=== PATIENT | female | born 1985 | race African-American/Black ===

== ENCOUNTER 2017-07-20 06:24 | Emergency (ER) | payer SELFPAY ==
--- NOTE | 2017-07-20 07:13 | ER Document Report ---
HPI - HPI Patient complains to provider of: Left upper teeth pain Onset: Yesterday Onset/Duration: Gradual Pain Level: 5 Context: 31-year-old female complaining of upper left dental pain she knows she has decayed teeth but afford to see a dentist. No fever or facial swelling. She is allergic to penicillin but she can take cephalexin. She took Motrin and Tylenol without relief. Associated Symptoms: None Exacerbated by: Denies Relieved by: Denies - ROS ROS below otherwise negative: Yes Systems Reviewed and Negative: Yes All other systems reviewed and negative - REPRODUCTIVE Reproductive: DENIES: : Past Medical History - General Information source: Patient - Social History Smoking Status: Current Some Day Smoker Frequency of alcohol use: None Lives with: Family Family History: Hypertension Patient has suicidal ideation: No Patient has homicidal ideation: No Pulmonary Medical History: Reports: Hx Asthma Renal/ Medical History: Denies: Hx Peritoneal Dialysis Surgical Hx: Negative - Immunizations Hx Diphtheria, Pertussis, Tetanus Vaccination: Yes Vertical Provider Document - CONSTITUTIONAL Agree With Documented VS: Yes Exam Limitations: No Limitations General Appearance: No Apparent Distress - INFECTION CONTROL TRAVEL OUTSIDE OF THE [place] IN LAST 30 DAYS: No - HEENT HEENT: Normocephalic Notes: dental decay 2nd bicupid and 1st molar top left, no gingival abscess but inflamed - NECK Neck: Supple. negative: Lymphadenopathy-Left, Lymphadenopathy-Right - RESPIRATORY O2 Sat by Pulse Oximetry: 100 - NEURO Level of Consciousness: Awake, Alert - DERM Integumentary: Warm, Dry Course - Vital Signs Vital signs: Temp Pulse Resp BP Pulse Ox 98.4 F 111 H 22 H 143/90 H 100 07/20/17 06:28 07/20/17 06:28 07/20/17 06:28 07/20/17 06:28 07/20/17 06:28 Discharge - Discharge Clinical Impression: Dental pain and decay Condition: Good Disposition: HOME, SELF-CARE Instructions: Acetaminophen, Cephalexin ([facility]), Dentist, Use of Over-The- Counter Ibuprofen ([facility]), Toothache ([facility]) Additional Instructions: over the counter oragel for topical pain relief over the counter motrin and tylenol for pain see the dentist to er any fever, swelling Prescriptions: Cephalexin Monohydrate [Keflex 500 mg Capsule] 500 mg PO QID #40 capsule
[2017-07-20] MEDS ORDERED: BENZONATATE 100 MG CAPSULE PO ONE (07:28)
[2017-07-20 08:08] VITALS: BP 139/85
== END 2017-07-20 08:05 | disposition home or self-care (01) ==
LOC: ER 06:24
DX: K02.9 Dental caries, unspecified (principal); K05.10 Chronic gingivitis, plaque induced; K08.89 Other specified disorders of teeth and supporting structures; J45.909 Unspecified asthma, uncomplicated; F17.200 Nicotine dependence, unspecified, uncomplicated; Z88.0 Allergy status to penicillin
CPT/HCPCS: 99282

== ENCOUNTER 2017-12-25 23:29 | Emergency (ER) | payer SELFPAY ==
[2017-12-25 23:42] VITALS: BP 152/94
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
== END 2017-12-26 03:27 | disposition home or self-care (01) ==
LOC: ER 23:29
DX: F41.9 Anxiety disorder, unspecified (principal); J45.909 Unspecified asthma, uncomplicated; Z88.0 Allergy status to penicillin; Z53.20 Procedure and treatment not carried out because of patient's decision for unspecified reasons
CPT/HCPCS: 99281; 99283

== ENCOUNTER 2018-07-29 10:02 | Emergency (ER) | payer SELFPAY ==
--- NOTE | 2018-07-29 10:33 | ER Document Report ---
ED Medical Screen (RME) - General Chief Complaint: Cough Stated Complaint: COUGH/CHEST ACHE Time Seen by Provider: 07/29/18 10:26 Notes: Patient says that she has had a bad cough for couple of weeks. She is also developed some substernal chest pains at feels like a stabbing pain in the mid substernal region going through into her back. Also has some discomfort in the epigastrium. The symptoms have been going on off and on since March but became daily in the past week. Has a history of asthma. Has not had any fever. I noted the patient's pulse rate in triage and its 121. Remainder vital signs are normal. Patient is holding a very large cup of coffee which I am told is 16 ounces. She actually has had 2 of those large 16 ounce coffees this morning and now has a Sprite that she is drinking. Denies any leg pain or swelling. LMP July 15, regular, on no control. Has no medical conditions for which he takes medications. Patient is a cigarette smoker of 1/4-1/3 of a pack a day. She says that she is been coughing up some black specks and may be even a couple of flecks of blood. TRAVEL OUTSIDE OF THE [place] IN LAST 30 DAYS: No - Related Data Allergies/Adverse Reactions: Penicillins Allergy (Severe, Verified 07/29/18 10:06) thoat swelling Past Medical History - Social History Cigarette use (# per day): Yes - 1/4 to 1/3 pack a day Family history: Reviewed & Not Pertinent Pulmonary Medical History: Reports: Hx Asthma - Immunizations Hx Diphtheria, Pertussis, Tetanus Vaccination: Yes Review of Systems - Review of Systems Notes: REVIEW OF SYSTEMS: CONSTITUTIONAL : Denies fever. EENT: Denies eye, ear, nose or mouth or throat pain or other symptoms. CARDIOVASCULAR: See HPI. Sharp, stabbing pain from the mid substernal into the back intermittently for several months. RESPIRATORY: Has cough, chest congestion, but not shortness of breath. GASTROINTESTINAL: Denies abdominal pain or nausea, vomiting, or diarrhea. Some pain in the upper mid epigastrium. GENITOURINARY: Denies difficulty or painful urinating, urinary frequency, blood in urine. MUSCULOSKELETAL: Denies back or neck pain. Denies joint pain or swelling. Denies any leg pain or swelling. Never had any blood clots. SKIN: Denies rash or skin lesions. NEUROLOGICAL: Denies LOC or altered mental status. Denies headache. Denies sensory loss or motor deficits. ALL OTHER SYSTEMS REVIEWED AND NEGATIVE. Physical Exam - Vital signs Vitals: Temp Pulse Resp BP Pulse Ox 98.6 F 121 H 16 145/92 H 97 07/29/18 10:08 07/29/18 10:08 07/29/18 10:08 07/29/18 10:08 07/29/18 10:08 Interpretation: Tachycardic - Patient has had 2 large 16 ounce cups of regular coffee as well as some Sprite this morning. Also smokes. Notes: PHYSICAL EXAMINATION: GENERAL: Well-appearing, in no acute distress. Heart rate at bedside by me is 108. No respiratory difficulty or distress. Coughing frequently. HEAD: Atraumatic, normocephalic. EYES: Pupils equal round and reactive to light, extraocular movements intact. ENT: oropharynx has large tonsils but only slightly erythematous and without exudates. Moist mucous membranes. NECK: Normal range of motion, supple. LUNGS: Breath sounds clear and equal bilaterally. Very few scattered wheezes and rhonchi. Airflow sounds good. HEART: Regular rate and rhythm without murmurs. ABDOMEN: Soft, nontender. No guarding or rebound. No masses. BACK: No tenderness throughout entire back. EXTREMITIES: Normal range of motion without pain. NEUROLOGICAL: Normal speech, normal gait. Normal sensory, motor, and reflex exams. Awake, alert, and oriented x3. Cranial nerves normal. PSYCH: Normal mood, normal affect. SKIN: Warm, dry, no rashes. Course - Vital Signs Vital signs: Temp Pulse Resp BP Pulse Ox 98.6 F 121 H 16 145/92 H 97 07/29/18 10:08 07/29/18 10:08 07/29/18 10:08 07/29/18 10:08 07/29/18 10:08 - Laboratory Result Diagrams: 07/29/18 10:50 07/29/18 10:50 Laboratory results interpreted by me: 07/29/18 07/29/18 10:50 10:50 WBC 16.9 H Hgb 11.8 L Hct 35.4 L RDW 15.0 H Absolute Neutrophils 11.7 H AST 50 H ALT 62 H Doctor's Discharge - Discharge Clinical Impression: Bronchitis Condition: Stable Disposition: HOME, SELF-CARE Additional Instructions: UPPER RESPIRATORY ILLNESS: You have a viral infection of the respiratory passages -- a "cold." This common infection causes nasal congestion, drainage, and often sore throat and cough. It is highly contagious. The disease usually lasts about 10 to 14 days. There is no "cure" for the viral infection -- it must run its course. If there is a complication, such as bacterial infection in the nose, sinuses, middle ear, or bronchial tubes, antibiotics may be required. The antibiotics won't affect the virus. Drink plenty of fluids. A humidifier may help. An expectorant medication or decongestant may make you more comfortable. Use acetaminophen or ibuprofen for fever or aches. See the doctor if fever persists over two days, if there is any significant worsening of your symptoms, or if you simply fail to improve as expected. Bronchitis You have acute bronchitis. This disease is an infection or inflammation of the air passageways in your lungs. Symptoms usually include cough, low grade fe akshat, shortness of breath, and wheezing. The cough usually persists for a couple of weeks. Most cases of bronchitis get better without antibiotics. We prescribe antibiotics when we believe bacteria are damaging your airways, or if there's high risk the bronchitis will worsen into pneumonia. Increase your fluid intake. A cool mist humidifier may make your lungs more comfortable. An expectorant (cough medicine that loosens phlegm) can help. If you smoke, STOP!!! Recovery from bronchitis can be somewhat slow, but you should see improvement within a day or two. Repeated episodes of bronchitis may result in lung damage -- for example, chronic bronchitis, recurrent pneumonias, or emphysema. Call the doctor if you develop increasing fever, shortness of breath, chest pain, bloody sputum, or otherwise worsen. If you have not improved at all after several days, contact the physician. COUGH-SUPPRESSANT & EXPECTORANT MEDICATION: You are to use a cough medication as needed for relief of symptoms. This medicine is a combination of an expectorant (to make the mucous thinner and more easily "coughed up") and a cough suppressant (to reduce the frequency of coughing). The cough-suppressant medicine is related to narcotics. You may experience mild nausea and sleepiness. Some patients who are very sensitive to narcotics may have stomach pain from this medicine. Taking the medicine with food reduces these side effects. Do not drive or work with machinery until you know how this medicine affects you. The expectorant should have no side effects. Iodine-containing expectorants (such as organidin) should not be taken by persons with active thyroid disease unless approved by your doctor. Call the doctor if you develop shortness of breath, hives, rash, itching, lightheadedness, or severe nausea and vomiting. USE OF ACETAMINOPHEN (Tylenol): Acetaminophen may be taken for pain relief or fever control. It's much safer than aspirin, offering a wider range of "safe" dosages. It is safe during . Some brand names are Tylenol, Panadol, Datril, Anacin 3, Tempra, and Liquiprin. Acetaminophen can be repeated every four hours. The following are maximum recommended dosages: >89 pounds or adults 650 mg to 900 mg Acetaminophen can be repeated every four hours. Maximum dose not to exceed 4000 mg a day. SMOKING: If you smoke, you should stop smoking. The tar and chemicals in cigarette smoke are harmful. Smoking has been shown to cause: emphysema chronic bronchitis lung cancer mouth and throat cancer stomach and pancreas cancer premature aging defects In addition, smoking increases ear and lung infections in children of smokers. FOLLOW-UP CARE: If you have been referred to a physician for follow-up care, call the physicians office for an appointment as you were instructed or within the next two days. If you experience worsening or a significant change in your symptoms, notify the physician immediately or return to the Emergency Department at any time for re-evaluation. It is very important that you stop smoking cigarettes. Prescriptions: Hydrocodone/Acetaminophen [Mcclellan 5-325 mg Tablet] 1 tab PO Q4HP PRN #15 tablet PRN Reason: Azithromycin [Zithromax 250 mg Tablet] 250 mg PO ASDIR PRN #6 tablet PRN Reason:
[2018-07-29 11:04] LABS: ABSOLUTE BASOPHILS # (AUTO) 0.1 10^3/uL (0.0-0.2); ABSOLUTE EOSINOPHILS # (AUTO) 0.5 10^3/uL (0.0-0.6); ABSOLUTE LYMPHOCYTES (AUTO) 3.3 10^3/uL (0.5-4.7); ABSOLUTE MONOCYTES (AUTO) 1.3 10^3/uL (0.1-1.4); ABSOLUTE NEUT (AUTO) 11.7 10^3/uL (1.7-8.2); BASOPHILS % (AUTO) 0.7 % (0-2); EOSINOPHILS % (AUTO) 2.8 % (0-6); HEMATOCRIT 35.4 % (36.0-47.0); HEMOGLOBIN 11.8 g/dL (12.0-15.5); LYMPHOCYTES % (AUTO) 19.3 % (13-45); MEAN CORPUSCULAR HEMOGLOBIN 28.6 pg (27.0-33.4); MEAN CORPUSCULAR HGB CONC 33.4 g/dL (32.0-36.0); MEAN CORPUSCULAR VOLUME 86 fl (80-97); MONOCYTES % (AUTO) 7.6 % (3-13); PLATELET COUNT 302 10^3/uL (150-450); RED BLOOD COUNT 4.12 10^6/uL (3.72-5.28); SEGMENTED NEUTROPHILS % (AUTO) 69.6 % (42-78); TOTAL CELLS COUNTED % (AUTO) 100 %; WHITE BLOOD COUNT 16.9 10^3/uL (4.0-10.5)
--- NOTE | 2018-07-29 11:12 | RADIOLOGY REPORT (SQ) ---
EXAM DESCRIPTION: CHEST 2 VIEWS COMPLETED DATE/TIME: 07/29/2018 11:05 am REASON FOR STUDY: Substernal chest pain COMPARISON: None. TECHNIQUE: Frontal and lateral radiographic views of the chest acquired. NUMBER OF VIEWS: Two view. LIMITATIONS: None. FINDINGS: LUNGS AND PLEURA: No opacities, masses or pneumothorax. No pleural effusion. MEDIASTINUM AND HILAR STRUCTURES: No masses or contour abnormalities. HEART AND VASCULAR STRUCTURES: Heart normal size. No evidence for failure. BONES: No acute findings. HARDWARE: None in the chest. OTHER: No other significant finding. IMPRESSION: NO SIGNIFICANT RADIOGRAPHIC FINDING IN THE CHEST. TECHNICAL DOCUMENTATION: JOB ID: [id number] [employer]- All Rights Reserved Reading location - IP/workstation name: [email or web address]
[2018-07-29 11:22] LABS: ALANINE AMINOTRANSFERASE 62 U/L (9-52); ALBUMIN 4.4 g/dL (3.5-5.0); ALKALINE PHOSPHATASE 118 U/L (38-126); ANION GAP 14 (5-19); ASPARTATE AMINO TRANSFERASE 50 U/L (14-36); BILIRUBIN,DIRECT 0.2 mg/dL (0.0-0.4); BILIRUBIN,TOTAL 0.6 mg/dL (0.2-1.3); BLOOD UREA NITROGEN 17 mg/dL (7-20); CALCIUM 9.6 mg/dL (8.4-10.2); CARBON DIOXIDE 25 mmol/L (22-30); CHLORIDE 103 mmol/L (98-107); GLUCOSE 107 mg/dL (75-110); LIPASE 29.2 U/L (23-300); POTASSIUM 3.9 mmol/L (3.6-5.0); SODIUM 141.7 mmol/L (137-145); TOTAL PROTEIN 7.9 g/dL (6.3-8.2)
[2018-07-29 12:11] VITALS: BP 153/97
[2018-07-29 12:14] LABS: FREE T4 (FREE THYROXINE) 1.14 ng/dL (0.78-2.19)
[2018-07-29 12:28] LABS: THYROID STIMULATING HORMONE 7.09 uIU/mL (0.47-4.68)
== END 2018-07-29 12:11 | disposition home or self-care (01) ==
LOC: ER 10:02
DX: J40 Bronchitis, not specified as acute or chronic (principal); R07.9 Chest pain, unspecified; F17.210 Nicotine dependence, cigarettes, uncomplicated; Z88.0 Allergy status to penicillin
CPT/HCPCS: 36415; 71046; 80053; 83690; 84439; 84443; 84484; 84703; 85025; 99284

== ENCOUNTER 2019-12-27 10:17 | Outpatient (CLI) | payer MEDICAID ==
--- NOTE | 2019-12-27 12:48 | RADIOLOGY REPORT (SQ) ---
EXAM DESCRIPTION: U/S PROFILE W/O STRESS IMAGES COMPLETED DATE/TIME: 12/27/2019 12:00 pm REASON FOR STUDY: non reactive NST @36wga COMPARISON: None. TECHNIQUE: Limited phelan-scale realtime and static images of the fetus to measure specified parameter s. LIMITATIONS: None. FINDINGS: HEART RATE: 136 beats per minute. CINDY: 17.3 cm. LVP: 9.8 x 5.4 cm. BREATHING MOVEMENT: 2 points. MOVEMENT: 2 points. POSTURE AND TONE: 2 points. QUALITATIVE CINDY: 2 points. OTHER: No other finding. IMPRESSION: BIOPHYSICAL PROFILE: 03/09. Trimester of : Third - 28 weeks to delivery COMMENT: BREATHING MOVEMENTS: 2 POINTS: PRESENT 0 POINTS: ABSENT MOTION: 2 POINTS: PRESENT 0 POINTS: ABSENT TONE: 2 POINTS: PRESENT 0 POINTS: ABSENT AMNIOTIC FLUID VOLUME: 2 POINTS: LARGEST POCKET GREATER THAN 2 CM DEPTH. 0 POINTS: NO POCKET OF 2 CM. TECHNICAL DOCUMENTATION: JOB ID: [id number] [employer]- All Rights Reserved Reading location - IP/workstation name: [email or web address]
== END 2019-12-27 12:37 | disposition home or self-care (01) ==
LOC: LC 10:17
PROVIDERS: ATTEND Obstetrics & Gynecology Gynecology
DX: O10.913 Unspecified pre-existing hypertension complicating pregnancy, third trimester (principal); Z3A.36 36 weeks gestation of pregnancy; Z88.0 Allergy status to penicillin; Z87.891 Personal history of nicotine dependence
CPT/HCPCS: 59025; 76819

== ENCOUNTER 2020-01-15 15:57 | Outpatient (CLI) | payer MEDICAID ==
[2020-01-15 17:41] LABS: ABSOLUTE BASOPHILS # (AUTO) 0.1 10^3/uL (0.0-0.2); ABSOLUTE EOSINOPHILS # (AUTO) 0.1 10^3/uL (0.0-0.6); ABSOLUTE LYMPHOCYTES (AUTO) 2.6 10^3/uL (0.5-4.7); ABSOLUTE MONOCYTES (AUTO) 0.8 10^3/uL (0.1-1.4); ABSOLUTE NEUT (AUTO) 7.8 10^3/uL (1.7-8.2); BASOPHILS % (AUTO) 0.8 % (0-2); EOSINOPHILS % (AUTO) 0.7 % (0-6); HEMATOCRIT 38.1 % (36.0-47.0); HEMOGLOBIN 12.6 g/dL (12.0-15.5); LYMPHOCYTES % (AUTO) 22.9 % (13-45); MEAN CORPUSCULAR VOLUME 88 fl (80-97); MONOCYTES % (AUTO) 6.7 % (3-13); PLATELET COUNT 233 10^3/uL (150-450); RED BLOOD COUNT 4.33 10^6/uL (3.72-5.28); RED CELL DISTRIBUTION WIDTH 13.5 % (11.5-14.0); SEGMENTED NEUTROPHILS % (AUTO) 68.9 % (42-78); TOTAL CELLS COUNTED % (AUTO) 100 %; WHITE BLOOD COUNT 11.4 10^3/uL (4.0-10.5)
[2020-01-15 17:58] LABS: ALBUMIN 3.6 g/dL (3.5-5.0); ALKALINE PHOSPHATASE 156 U/L (38-126); ANION GAP 10 (5-19); ASPARTATE AMINO TRANSFERASE 33 U/L (14-36); BILIRUBIN,TOTAL 0.5 mg/dL (0.2-1.3); BLOOD UREA NITROGEN 10 mg/dL (7-20); CALCIUM 9.3 mg/dL (8.4-10.2); CARBON DIOXIDE 20 mmol/L (22-30); CHLORIDE 107 mmol/L (98-107); GLUCOSE 82 mg/dL (75-110); POTASSIUM 3.7 mmol/L (3.6-5.0); TOTAL PROTEIN 7.2 g/dL (6.3-8.2); URIC ACID 4.6 mg/dL (2.5-6.2)
--- NOTE | 2020-01-15 19:14 | Non Stress Test Report ---
Non Stress Test Datetime Report Generated by CPN: 01/15/2020 19:14 DEMOGRAPHIC EGA NST: 38.5 EGA NST: 36.0 VITAL SIGNS Temperature - NST: 98.0 MONITORING Monitor Explained: Monitor Explained; Test Explained; Patient Verbalized Understanding Monitor Explained: Monitor Explained; Test Explained; Patient Verbalized Understanding Time on Monitor: 01/15/2020 16:25 Time on Monitor: 12/27/2019 10:26 Time off Monitor: 01/15/2020 17:23 NST Duration: 58 NST INTERVENTIONS NST Interventions: PO Hydration; Reposition Patient Physician Notified NST: Dr. Burgos Physician Notified NST: Jono Nelson CNJuwan on unit, reviewed fht BABY A: [id number] BABY A Movement : Present Contraction Frequency : irregular Contraction Frequency : none FHR Baseline : 125 Accelerations : 15X15 Decelerations : None Variability : Moderate 6-25bpm NST Review: Meets Criteria for Reactive NST NST Review and Verified By : J.Field, RN NST Results: Reactive NST REPORT Report Trigger: Send Report
[2020-01-15 19:31] LABS: APPEARANCE,URINE CLEAR; BILIRUBIN,URINE NEGATIVE (NEGATIVE); COLOR,URINE STRAW; GLUCOSE, URINE NEGATIVE (NEGATIVE); KETONES,URINE NEGATIVE (NEGATIVE); LEUKOCYTE ESTERASE,URINE TRACE (NEGATIVE); NITRITE,URINE NEGATIVE (NEGATIVE); PROTEIN,URINE NEGATIVE (NEGATIVE); URINE SPECIFIC GRAVITY 1.009; UROBILINOGEN,URINE NEGATIVE mg/dL (<2.0)
[2020-01-15 19:45] LABS: URINE AMPHETAMINES SCREEN NEGATIVE; URINE BARBITURATES SCREEN NEGATIVE; URINE BENZODIAZEPINES SCREEN NEGATIVE; URINE COCAINE SCREEN NEGATIVE; URINE MARIJUANA (THC) SCREEN NEGATIVE; URINE METHADONE SCREEN NEGATIVE; URINE PHENCYCLIDINE SCREEN NEGATIVE
[2020-01-15 19:50] LABS: UR PRO/CREAT RATIO RESULT 0.3 mg/mg (0.0-0.2); URINE CREATININE 52.5 mg/dL (16-327); URINE PROTEIN 14.2 mg/dL (<12)
== END 2020-01-15 19:41 | disposition home or self-care (01) ==
LOC: LC 15:57
PROVIDERS: ATTEND Obstetrics & Gynecology
DX: O16.3 Unspecified maternal hypertension, third trimester (principal); Z3A.38 38 weeks gestation of pregnancy; Z88.0 Allergy status to penicillin; Z87.891 Personal history of nicotine dependence
CPT/HCPCS: 36415; 80053; 80307; 81001; 82570; 83615; 84156; 84550; 85025

== ENCOUNTER 2020-01-17 19:11 | Inpatient (IN) | payer MEDICAID ==
[2020-01-17] MEDS ORDERED: RINGERS SOLUTION,LACTATED 1,000 ML IV ONE (19:15)
[2020-01-17] MEDS ORDERED: ACETAMINOPHEN 325 MG TABLET PO PRN (19:17)
[2020-01-17] MEDS ORDERED: ZOLPIDEM TARTRATE 5 MG TABLET PO PRN (19:17)
[2020-01-17] MEDS ORDERED: DINOPROSTONE 10 MG VAGINAL INSERT.SR PV ONE (19:17)
[2020-01-17] MEDS ORDERED: MAG HYDROX/AL HYDROX/SIMETH SUSP 30 ML UDCUP PO PRN (19:17)
[2020-01-17 20:08] LABS: ABSOLUTE EOSINOPHILS # (AUTO) 0.1 10^3/uL (0.0-0.6); ABSOLUTE LYMPHOCYTES (AUTO) 2.5 10^3/uL (0.5-4.7); ABSOLUTE MONOCYTES (AUTO) 0.7 10^3/uL (0.1-1.4); ABSOLUTE NEUT (AUTO) 7.6 10^3/uL (1.7-8.2); BASOPHILS % (AUTO) 0.4 % (0-2); EOSINOPHILS % (AUTO) 0.8 % (0-6); HEMATOCRIT 35.8 % (36.0-47.0); HEMOGLOBIN 12.4 g/dL (12.0-15.5); LYMPHOCYTES % (AUTO) 22.5 % (13-45); MEAN CORPUSCULAR HEMOGLOBIN 29.9 pg (27.0-33.4); MEAN CORPUSCULAR HGB CONC 34.7 g/dL (32.0-36.0); MEAN CORPUSCULAR VOLUME 86 fl (80-97); MONOCYTES % (AUTO) 6.7 % (3-13); PLATELET COUNT 242 10^3/uL (150-450); RED BLOOD COUNT 4.16 10^6/uL (3.72-5.28); RED CELL DISTRIBUTION WIDTH 13.8 % (11.5-14.0); SEGMENTED NEUTROPHILS % (AUTO) 69.6 % (42-78); TOTAL CELLS COUNTED % (AUTO) 100 %
[2020-01-17 20:21] LABS: APPEARANCE,URINE SLIGHTLY-CLOUDY; BILIRUBIN,URINE NEGATIVE (NEGATIVE); COLOR,URINE YELLOW; GLUCOSE, URINE NEGATIVE (NEGATIVE); KETONES,URINE NEGATIVE (NEGATIVE); LEUKOCYTE ESTERASE,URINE SMALL (NEGATIVE); NITRITE,URINE NEGATIVE (NEGATIVE); PROTEIN,URINE NEGATIVE (NEGATIVE); URINE SPECIFIC GRAVITY 1.012; UROBILINOGEN,URINE NEGATIVE mg/dL (<2.0)
[2020-01-17] MEDS: RINGERS SOLUTION,LACTATED 1,000 ML IV PRN (20:30)
[2020-01-17 20:37] LABS: URINE AMPHETAMINES SCREEN NEGATIVE; URINE BARBITURATES SCREEN NEGATIVE; URINE BENZODIAZEPINES SCREEN NEGATIVE; URINE COCAINE SCREEN NEGATIVE; URINE MARIJUANA (THC) SCREEN NEGATIVE; URINE METHADONE SCREEN NEGATIVE; URINE PHENCYCLIDINE SCREEN NEGATIVE
[2020-01-17] MEDS ORDERED: DINOPROSTONE 10 MG VAGINAL INSERT.SR ONE (20:46)
[2020-01-18] MEDS: RINGERS SOLUTION,LACTATED 1,000 ML IV PRN (04:30)
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
[2020-01-18] MEDS ORDERED: OXYTOCIN/0.9 % SODIUM CHLORIDE 30 UNIT/500 ML RTUINJ IV PRN (10:22)
[2020-01-18] MEDS ORDERED: OXYTOCIN/0.9 % SODIUM CHLORIDE 0 UNIT/0 ML RTUINJ ONE (10:29)
[2020-01-18] MEDS ORDERED: NALBUPHINE HCL INJ 10 MG/1 ML AMPULE ONE (15:29)
[2020-01-18] MEDS ORDERED: PROMETHAZINE HCL INJ 25 MG/1 ML VIAL ONE (15:29)
[2020-01-18] MEDS ORDERED: NIFEDIPINE 10 MG CAPSULE ONE (15:58)
[2020-01-18] MEDS ORDERED: PROMETHAZINE HCL INJ 25 MG/1 ML VIAL IV ONE (16:00)
[2020-01-18] MEDS ORDERED: NALBUPHINE HCL INJ 10 MG/1 ML AMPULE INJ ONE (16:00)
[2020-01-18] MEDS ORDERED: NIFEDIPINE 10 MG CAPSULE PO ONE (16:15)
[2020-01-18] MEDS ORDERED: EPHEDRINE SULFATE INJ 50 MG/1 ML AMPULE ONE (17:19)
[2020-01-18] MEDS ORDERED: BUPIVACAINE HCL 0.25 % INJ/PF (2.5 MG/1 ML) 30 ML VIAL ONE (17:20)
[2020-01-18] MEDS ORDERED: FENTANYL/BUPIVACAINE/NS/PF 300 MCG/150 ML RTUINJ EPI ONE (17:20)
[2020-01-18] MEDS ORDERED: LIDOCAINE 1% INJ-PF (10 MG/ML) 30 ML SDV ONE (19:28)
[2020-01-18] MEDS ORDERED: MISOPROSTOL 0.2 MG TABLET ONE (19:28)
[2020-01-18] MEDS ORDERED: OXYTOCIN 10 UNIT/ML VIAL ONE (19:28)
[2020-01-18] MEDS ORDERED: OXYTOCIN/0.9 % SODIUM CHLORIDE 30 UNIT/500 ML RTUINJ ONE (19:29)
[2020-01-19] MEDS ORDERED: OXYTOCIN/0.9 % SODIUM CHLORIDE 30 UNIT/500 ML RTUINJ ONE (07:33)
[2020-01-19] MEDS ORDERED: FENTANYL/BUPIVACAINE/NS/PF 300 MCG/150 ML RTUINJ EPI ONE (08:53)
[2020-01-19] MEDS ORDERED: BUPIVACAINE HCL 0.25 % INJ/PF (2.5 MG/1 ML) 30 ML VIAL ONE (10:22)
[2020-01-19] MEDS ORDERED: MEASLES,MUMPS&RUBELLA VACC/PF 0.5 ML VIAL SUBCUT PRN (10:38)
[2020-01-19] MEDS ORDERED: PSEUDOEPHEDRINE HCL 30 MG TABLET PO PRN (10:38)
[2020-01-19] MEDS ORDERED: ACETAMINOPHEN 325 MG TABLET PO PRN (10:38)
[2020-01-19] MEDS ORDERED: MAGNESIUM HYDROXIDE SUSP 30 ML UDCUP PO PRN (10:38)
[2020-01-19] MEDS ORDERED: BENZOCAINE/MENTHOL AEROSOL SPRAY 56 ML TOP PRN (10:38)
[2020-01-19] MEDS ORDERED: PROMETHAZINE HCL 25 MG TABLET PO PRN (10:38)
[2020-01-19] MEDS ORDERED: PROMETHAZINE HCL 25 MG SUPP.RECT PR PRN (10:38)
[2020-01-19] MEDS ORDERED: DIBUCAINE 1% OINTMENT 28 GM TP PRN (10:38)
[2020-01-19] MEDS ORDERED: PROMETHAZINE HCL INJ 25 MG/1 ML VIAL IV PRN ×2 (10:38→13:59)
[2020-01-19] MEDS ORDERED: DIPHENHYDRAMINE HCL 25 MG CAPSULE PO PRN (10:38)
[2020-01-19] MEDS ORDERED: DIPH/PERTUSS(ACELL)/TETANUS VAC/PF 0.5 ML SYR (>=10YO) IM PRN (10:38)
[2020-01-19] MEDS ORDERED: OXYTOCIN/0.9 % SODIUM CHLORIDE 30 UNIT/500 ML RTUINJ IV PRN (10:38)
[2020-01-19] MEDS ORDERED: ZOLPIDEM TARTRATE 5 MG TABLET PO PRN (10:38)
[2020-01-19] MEDS ORDERED: GLYCERIN/WITCH HAZEL LEAF 1 EACH MED..WIPE TP PRN (10:38)
[2020-01-19] MEDS ORDERED: NA PHOS,M-B/NA PHOS,DI-BA (ADULT) 133 ML ENEMA PR PRN (10:38)
[2020-01-19] MEDS ORDERED: CARBOPROST TROMETHAMINE INJ 250 MCG/1 ML AMPULE ONE (10:56)
[2020-01-19] MEDS ORDERED: HYDROMORPHONE HCL INJ/PF 2 MG/ML AMPULE ONE (11:28)
[2020-01-19] MEDS ORDERED: HYDROMORPHONE HCL INJ/PF 2 MG/ML AMPULE IV ONE ×2 (11:30→21:42)
--- NOTE | 2020-01-19 12:16 | PDOC CONSULTATION ---
Consultation Consult Date: 01/19/20 Provider Consulted: SURGICAL SURGICALIST Consult reason:: rectal trauma. Full thickness rectal tear History of Present Illness Admission Date/PCP: 01/17/20 19:11 BENNETT SHAW MD History of Present Illness: LATASHA MCCALL is a 34 year old female seen in consultation at the request of the TRUCK RENTAL MANAGER service. This is a patient who was undergoing vaginal delivery, and had a severe posterior vaginal tear, involving the wall of the rectum (full- thickness). On examination, I estimate that the rectal tear approximately 6 to 8 cm, and oriented longitudinally. No retractors were available for examination in the labor and delivery suite, so estimations were based on palpation. The patient complains of rectal and perineal pain. Her pain is sharp and stabbing. She reports that it is 8 out of 10. There is slow, ongoing bleeding. She is positive for hepatitis C, and has a history of hypertension and substance abuse. The patient denies chest pain, shortness of breath, abdominal pain. Past Medical History Cardiac Medical History: Reports: Hypertension Pulmonary Medical History: Reports: Asthma Infectious Medical History: Reports: Hepatitis C Past Surgical History Past Surgical History: Reports: Other - Recent vaginal delivery Social History Smoking Status: Former Smoker Frequency of Alcohol Use: Occasional Hx Recreational Drug Use: Yes Drugs: Other - Methamphetamine, opioids. Hx Prescription Drug Abuse: Yes Past Social History Note: Currently on Suboxone therapy for substance abuse. Family History Family History: Hypertension Parental Family History Reviewed: Yes Children Family History Reviewed: Yes Sibling(s) Family History Reviewed.: Yes Medication/Allergy Home Medications: Buprenorphine HCl/Naloxone HCl [Suboxone 8 mg-2 mg Sl Film] 8 mg SL DAILY 12/27/19 Labetalol HCl [Normodyne 200 mg Tablet] 200 mg PO BID 12/27/19 Pantoprazole Sodium [Protonix [address] Tablet] 40 mg PO DAILY 12/27/19 No122/Iron/Folic Acid [ Multi Tablet] 1 tab PO DAILY 12/27/19 Allergies/Adverse Reactions: Penicillins Allergy (Severe, Verified 01/17/20 19:28) thoat swelling Review of Systems Constitutional: ABSENT: anorexia, chills, fatigue Eyes: ABSENT: visual disturbances Ears: ABSENT: hearing changes Nose, Mouth, and Throat: ABSENT: mouth pain, sore throat Cardiovascular: ABSENT: chest pain Respiratory: ABSENT: cough Gastrointestinal: PRESENT: hematochezia. ABSENT: abdominal pain Genitourinary: ABSENT: dysuria Musculoskeletal: ABSENT: back pain Integumentary: PRESENT: wounds - Large perineal wound Neurological: ABSENT: confusion, convulsions, dizziness Psychiatric: PRESENT: other - History of substance abuse Endocrine: ABSENT: cold intolerance, heat intolerance Hematologic/Lymphatic: ABSENT: easy bleeding, easy bruising Physical Exam Vital Signs: Intake & Output 01/18/20 01/19/20 01/20/20 06:59 06:59 06:59 Intake Total 1000 Balance 1000 Weight 89.7 kg General appearance: PRESENT: no acute distress, cooperative Head exam: PRESENT: atraumatic, normocephalic Eye exam: PRESENT: EOMI, PERRLA. ABSENT: scleral icterus Mouth exam: PRESENT: moist, neck supple Neck exam: ABSENT: meningismus, tenderness, thyromegaly, tracheal deviation Respiratory exam: PRESENT: unlabored. ABSENT: chest wall tenderness, tachypnea, wheezes Cardiovascular exam: ABSENT: tachycardia Vascular exam: PRESENT: normal capillary refill. ABSENT: pallor GI/Abdominal exam: PRESENT: soft. ABSENT: distended, firm, guarding, tenderness Rectal exam: PRESENT: other - Bleeding present. The external sphincter complex appears intact. Large anterior rectal laceration extending approximately 6 to 8 cm, longitudinally. Full-thickness. Extremities exam: ABSENT: clubbing Musculoskeletal exam: ABSENT: deformity Neurological exam: PRESENT: alert, awake, oriented to person, oriented to place, oriented to time, oriented to situation, CN II-XII grossly intact Psychiatric exam: PRESENT: anxious. ABSENT: agitated, depressed Focused psych exam: ABSENT: delusional Skin exam: ABSENT: cyanosis, erythema, jaundice Results Laboratory Results: 01/17/20 19:55 Assessment & Plan - Diagnosis (1) Traumatic injury of rectum Is this a current diagnosis for this admission?: Yes - Plan Summary Plan Summary: This is a 34-year-old female with a full-thickness tear of the rectum. It occurred during her vaginal delivery. On digital inspection, it appears that the sphincter complex is intact. Unfortunately, no retractors are available for a detailed examination. I have recommended operative exploration with repair of the large laceration. The patient is at high risk for fistulization and/or incontinence. There is also the possibility (although unlikely) that the tear could extend into the intra-abdominal cavity, which would put her at risk for intra-abdominal sepsis. Plan for primary repair in 2 layers. If there is failure of the repair or overall failure to improve, the patient may require colostomy placement to assist in healing. This has been discussed with the patient at length. Risks/benefits discussed, informed consent obtained, and all questions answered.
[2020-01-19] MEDS ORDERED: BUPIVACAINE HCL 0.5%-EPI 1:200000 INJ/PF 30 ML VIAL ONE (12:20)
[2020-01-19] MEDS ORDERED: BACITRACIN ZINC OINTMENT 15 GM ONE (13:11)
[2020-01-19] MEDS ORDERED: LIDOCAINE 2% JELLY 30 ML TUBE ONE (13:12)
[2020-01-19] MEDS ORDERED: BUPIVACAINE INJ/PF LIPOSOME/PF 266 MG/20 ML SDV ONE (13:12)
[2020-01-19] MEDS ORDERED: CEFAZOLIN INJ 1 GM VIAL ONE (13:20)
[2020-01-19] MEDS ORDERED: FENTANYL CITRATE INJ/PF 100 MCG/2 ML AMPUL ONE (13:21)
[2020-01-19] MEDS ORDERED: METRONIDAZOLE 500 MG/NS RTU 500 MG/100 ML RTUPB IV ONE (13:21)
[2020-01-19] MEDS ORDERED: MIDAZOLAM 2 MG/2 ML INJ ONE (13:21)
[2020-01-19] MEDS ORDERED: PROPOFOL INJ 200 MG/20 ML VIAL IV ONE ×2 (13:22→15:02)
[2020-01-19] MEDS ORDERED: DIPHENHYDRAMINE HCL 50 MG/ML VIAL IV PRN (13:59)
[2020-01-19] MEDS ORDERED: MORPHINE SULFATE 10 MG/ML INJ IV PRN (13:59)
[2020-01-19] MEDS ORDERED: MEPERIDINE HCL/PF INJ 25 MG/1 ML DISP.SYRIN IV PRN (13:59)
[2020-01-19] MEDS ORDERED: FENTANYL CITRATE INJ/PF 100 MCG/2 ML AMPUL IV PRN ×3 (13:59)
[2020-01-19] MEDS ORDERED: LIDOCAINE 1% INJ-PF (10 MG/ML) 30 ML SDV ONE (14:26)
--- NOTE | 2020-01-19 14:47 | Operative Report ---
Nonrecallable Operative Report DATE OF SURGERY: 01/19/20 PREOPERATIVE DIAGNOSIS: Full-thickness rectal tear, status post vaginal delivery POSTOPERATIVE DIAGNOSIS: 1. Same as above. 2. Approximately 5 cm longitudinal rectal tear, that appeared to spare the external sphincter complex OPERATION: Repair/closure of full-thickness 5 cm longitudinal rectal tear, 2 layer closure. SURGEON: SHERRY MANUEL 1ST ETCHER MACHINE: BRENDAN CARBAJAL ANESTHESIA: Spinal - With LMAC TISSUE REMOVED OR ALTERED: none COMPLICATIONS: Damage to the internal sphincter complex. Repair using 0 Vicryl suture. ESTIMATED BLOOD LOSS: Minimal PROCEDURE: Drain/implants: None. Procedure in detail: After informed consent was obtained for the patient, she was brought to the operating room and laid the prone jackknife position. The area of the anus and rectum were prepped and draped in a normal sterile fashion. A Hill-Escoto retractor was inserted into the rectum for retraction purposes. The anterior tear was easily identified. It was full-thickness, into the vagina. A dilator was placed into the vagina as a placeholder. This aided in visualization of the mucosa and muscular layers. The muscular layer was reapproximated from proximal to distal using 3-0 Vicryl pop-off sutures in interrupted fashion.. At the distal margin, it appeared that the fibers of the internal sphincter complex were torn. This was reapproximated using 0 Vicryl suture in [id number] fashion. Next, the mucosal layer was reapproximated using 3-0 Vicryl suture in simple running fashion, from proximal to distal. After this was completed, the repair appeared air and watertight. This portion of the procedure was then concluded. The procedure was then turned over to Dr. Carbajal who completed the vaginal portion. Please see her dictation for details regarding this. Condition: Stable. Dr. Carbajal was scrubbed and present the entirety of this procedure. She assisted with all portions of the procedure including retraction of the rectum, closure of the muscular and mucosal layers.
[2020-01-19] MEDS: IBUPROFEN 800 MG TABLET PO SCH ×2 (16:27→16:31)
[2020-01-19] MEDS ORDERED: ACETAMINOPHEN WITH CODEINE #3 TABLET PO PRN (16:37)
--- NOTE | 2020-01-19 17:26 | Delivery Summary ---
Del Sum A-C Datetime Report Generated by CPN: 01/19/2020 17:26 DELIVERY PERSONNEL DELIVERY PERSONNEL: [id number] Delivery Doctor:: Radha rKamer CNM Labor and Delivery Nurse:: RONAN Nunez Nursery Nurse:: Francisca Tovar RN Professor Of Literacy/CREDIT CHARGE AUTHORIZER: Shanel Scherer, ST MATERNAL INFORMATION Delivery Anesthesia: Epidural Medications After Delivery: Pitocin Bolus-Please Comment; Pitocin 30 Units in 500ml NS/D5W Delivery QBL: 200 Maternal Complications: Prolonged Second Stage > 2 Hrs Provider Comments: while pushing, amniotic fluid seen gushing from rectum. . baby delivered PAM without any difficiulty. cord double clamped and cut. Dr Ku called to assess the tear and found intact perineum but deep in vagina a 4th degree laceration. placenta delivered intact with 3VC. bleeeding minimal. to OR for repair. baby stable and will go to nursery while mom is in OR. LABOR SUMMARY EDC: 01/24/2020 00:00 No. Babies in Womb: 1 Attempted: No Labor Anesthesia: Epidural LABOR INFORMATION Reason for Induction: Chronic Primary/Essential HTN Onset of Labor: 01/18/2020 22:05 Complete Dilatation: 01/19/2020 07:15 Cervical Ripening Agents: Cervidil Oxytocin: Induction Group B Beta Strep: Negative Antibiotics # of Doses: 0 Antibiotics Time of Last Dose: n/a Name of Antibiotic Given: n/a Steroids Given: None Reason Steroids Not Administered: Not Applicable MEMBRANES Membranes Rupture Method: Artificial Rupture of Membranes: 01/18/2020 14:06 Length of Rupture (hr): 20.00 Amniotic Fluid Color: Clear Amniotic Fluid Amount: Moderate Amniotic Fluid Odor: Normal STAGES OF LABOR Stage 1 hr: 9 Stage 1 min: 10 Stage 2 hr: 2 Stage 2 min: 51 Stage 3 hr: 0 Stage 3 min: 7 Total Time in Labor hr: 12 Total Time in Labor min: 8 VAGINAL DELIVERY Episiotomy: None Laceration Extension #1: Fourth Degree Laceration Repair Note: see op note-taken to OR BABY A INFORMATION Delivery Date/Time: 01/19/2020 10:06 Method of Delivery: Vaginal Nurse Controlled Delivery: No Born in Route : No : N/A Forceps: N/A Vacuum Extraction: N/A Shoulder Dystocia : No PRESENTATION/POSITION BABY A Presentation: Cephalic Cephalic Presentation: Vertex Vertex Position: Right Occipital Anterior Breech Presentation: N/A PLACENTA INFORMATION BABY A Placenta Delivery Time : 01/19/2020 10:13 Placenta Method of Delivery: Spontaneous Placenta Status: Delivered SCORES BABY A Heart Rate 1 min: >100 bpm Resp Effort 1 min: Good Cry Reflex Irritability 1 min: Cough or Sneeze or Pulls Away Muscle Tone 1 min: Active Motion Color 1 min: Blue/Pale SCORE 1 MIN: 8 Heart Rate 5 min: >100 bpm Resp Effort 5 min: Good Cry Reflex Irritability 5 min: Cough or Sneeze or Pulls Away Muscle Tone 5 min: Active Motion Color 5 min: Body Burns Flat, Extremities Blue SCORE 5 MIN: 9 INFORMATION BABY A Gestational Age at Delivery: 39.2 Gestational Status: Full Term- 39- 40.6 Weeks Infant Outcome : Liveborn Condition : Stable Sex: Female IDENTIFICATION BABY A Verification Date/Time: 01/19/2020 10:32 ID Band Number: [id number] Mother's Name Verified: Yes Infant RN Verifying : Janeth Li, RN/ SPetr Bowman, RN WEIGHT/LENGTH BABY A Birthweight (gm): 2840 Infant Weight (lb): 6 Weight (oz): 4 Length (in): 18.00 Length (cm): 45.72 CORD INFORMATION BABY A No. Cord Vessels: 3 Nuchal Cord : N/A Cord Blood Taken: Yes-For Eval (Mom's Blood Type - or O+) Suction: Mouth; Nose ASSESSMENT BABY A Infant Complications: Multiple Variable Decels Physical Findings at Delivery: Molding of the Head Infant Respirations: Appears Normal Skin to Skin: Yes Skin to Skin Time (min): 30 Turret Lathe Machinist/ALS Called : No Infant Care By: Kiki Tovar Transferred To: Remains with Mother BABY B INFORMATION : N/A SIGNATURES Assignment: Heather Ku MD Signature: with User ID: [email or web address] : with User ID: [email or web address] : I was personally available for consultation and serving as supervising physician for the MLP.
--- NOTE | 2020-01-19 17:31 | Operative Report ---
Operative Report DATE OF SURGERY: 01/19/20 PREOPERATIVE DIAGNOSIS: 4th degree Obstetrical laceration POSTOPERATIVE DIAGNOSIS: POP, Cervical laceration OPERATION: Repair of 4th degree obstetrical vaginal laceration and cervical laceration repair. SURGEON: BRENDAN CARBAJAL ANESTHESIA: Epidural TISSUE REMOVED OR ALTERED: None COMPLICATIONS: none ESTIMATED BLOOD LOSS: 150 INTRAOPERATIVE FINDINGS: 2cm cervical laceration, Vaginal Portion of the Obstetrical 4th degree laceration extended up to just proximal to posterior cul de sac PROCEDURE: Anesthesia provider: [Dr. Valencia, SHARONA Smyth] Estimated blood loss: [150ml (this does not include QBL from delivery or while waiting for OR] Urine output: [400ml] IV fluids: [100ml] Indications: [34yo admitted for IOL for cervidil on 01/17/2020 then proceeded with continued IOL on 01/18/2020 and achieved c/c/+2 and pushing 01/19/2020. She delivered a baby girl at 1006. At the time of the delivery the biological science aide reported that she felt that amniotic fluid flowed out of her rectum. I was asked to come in for evaluation and poor lighting could not visualize extent of lesion. Patient was taken to the OR after epidural bolus for better visualization. Consents reviewed and signed. Evaluation performed in Labor and delivery OR and once adequate visualization achieved the extent of the rectal portion of the 4th degree appeared to be quite extensive and was approx 6cm and vaginal portion of laceration extended deeper into posterior vagina toward the cervix. Unable to see the full extent of vaginal portion due to poor coverage from epidural. Diluadid given and General surgery requested to evaluate rectal portion of tear. Dr. Hamilton evaluated tear and agreed needed a more extensive rectal repair. The risks, benefits, alternatives were reviewed and she desires to proceed with planned procedure. Procedure: The patient was taken to the OR after Epidual anesthesia was bolused again by Dr. Valencia and was found to be adequate. The initial portion of the procedure was completed by Dr. Hamilton in the prone position. Please see his note for that repair. During that repair, external anal sphincter was noted to be intact and internal anal sphincter was repaired/reinforced. After rectal portion of repair was repaired, the patient was changed to the high lithotomy position for the vaginal portion of the repair. Visualization achieved and 2cm laceration noted of cervix at 6 o'clock. Once the cervical laceration was identified a figure of eight suture placed to achieve hemostasis. At this time the vaginal portion of the repair was initiated by locating the apex of the vaginal laceration behind the cervix near posterior cul de sac. 2-0 vicryl running suture placed to reapproximate the rectovaginal fascia beneath the vaginal mucosa to the level of the hymenal ring. At this time the Transverse perineal muscles were reapproximated with single interrupted suture of 2-0 vicryl. The bulbocavernosis muscle was then reapproximated with a single interrupted 2-0 vicryl suture. The rectovaginal septum was then reapproximated from the above vaginal repair to the bulbocavernosus and transverse perineal muscle to recreate the perineal body. The vaginal mucosa was then reapproximated over this repair with a 3-0 vicrul running suture. The right labial extension was also reapproximated with 3-0 vicryl suture for hemostasis. Rectovaginal exam now with intact perineal body and no identifiable defects of rectum or vaginal wall. Good integrity of repair. IV flagyl 500mg given IV and Ancef 2grams IV given prior to procedure and will be continued for [address] Hamilton assistance with this patient.]
[2020-01-19] MEDS: LABETALOL HCL 200 MG TABLET PO SCH (18:00)
[2020-01-19] MEDS: DOCUSATE SODIUM 100 MG CAPSULE PO SCH (18:00)
[2020-01-19] MEDS: FERROUS SULFATE 325 MG TABLET PO SCH (18:00)
[2020-01-19] MEDS ORDERED: DOCUSATE SODIUM 100 MG CAPSULE PO SCH ×2 (18:00)
[2020-01-19] MEDS ORDERED: CEFAZOLIN 2 GM/D5W RTU 2 GM/50 ML RTUPB IV SCH (18:00)
[2020-01-19] MEDS: PSYLLIUM SEED-SF 5.85 GM PACKET PO SCH (18:02)
[2020-01-19] MEDS: CEFAZOLIN SODIUM 2 GM in DEXTROSE 5%-WATER 100 ML IV SCH (18:39)
[2020-01-19 19:18] LABS: HEMATOCRIT 30.9 % (36.0-47.0); HEMOGLOBIN 10.6 g/dL (12.0-15.5); MEAN CORPUSCULAR HEMOGLOBIN 29.5 pg (27.0-33.4); MEAN CORPUSCULAR HGB CONC 34.4 g/dL (32.0-36.0); MEAN CORPUSCULAR VOLUME 86 fl (80-97); PLATELET COUNT 202 10^3/uL (150-450); RED CELL DISTRIBUTION WIDTH 14.1 % (11.5-14.0)
[2020-01-19 19:45] LABS: WHITE BLOOD COUNT 26.3 10^3/uL (4.0-10.5)
[2020-01-19] MEDS: ACETAMINOPHEN WITH CODEINE #3 TABLET PO PRN (20:17)
[2020-01-19] MEDS: METRONIDAZOLE 500 MG/NS RTU 500 MG/100 ML RTUPB IV SCH (20:19)
[2020-01-19] MEDS: NIFEDIPINE 30 MG TAB.ER.24 PO SCH (22:11)
[2020-01-19] MEDS: FAMOTIDINE 20 MG TABLET PO SCH (22:12)
[2020-01-20] MEDS: CEFAZOLIN SODIUM 2 GM in DEXTROSE 5%-WATER 100 ML IV SCH ×6 (00:13→23:24)
[2020-01-20] MEDS: ACETAMINOPHEN WITH CODEINE #3 TABLET PO PRN ×3 (00:19→15:09)
[2020-01-20] MEDS: METRONIDAZOLE 500 MG/NS RTU 500 MG/100 ML RTUPB IV SCH ×4 (03:45→21:37)
[2020-01-20] MEDS: PANTOPRAZOLE SODIUM 40 MG TABLET.DR PO SCH (05:26)
[2020-01-20 07:21] LABS: ABSOLUTE BASOPHILS # (AUTO) 0.1 10^3/uL (0.0-0.2); ABSOLUTE EOSINOPHILS # (AUTO) 0.1 10^3/uL (0.0-0.6); ABSOLUTE MONOCYTES (AUTO) 1.5 10^3/uL (0.1-1.4); BASOPHILS % (AUTO) 0.4 % (0-2); EOSINOPHILS % (AUTO) 0.5 % (0-6); HEMATOCRIT 26.3 % (36.0-47.0); LYMPHOCYTES % (AUTO) 15.4 % (13-45); MEAN CORPUSCULAR HEMOGLOBIN 29.4 pg (27.0-33.4); MEAN CORPUSCULAR HGB CONC 34.3 g/dL (32.0-36.0); MEAN CORPUSCULAR VOLUME 86 fl (80-97); MONOCYTES % (AUTO) 7.5 % (3-13); PLATELET COUNT 170 10^3/uL (150-450); RED BLOOD COUNT 3.07 10^6/uL (3.72-5.28); RED CELL DISTRIBUTION WIDTH 13.9 % (11.5-14.0); SEGMENTED NEUTROPHILS % (AUTO) 76.2 % (42-78); TOTAL CELLS COUNTED % (AUTO) 100 %; WHITE BLOOD COUNT 19.7 10^3/uL (4.0-10.5)
[2020-01-20] MEDS ORDERED: HYDROMORPHONE HCL INJ/PF 2 MG/ML AMPULE ONE (08:10)
--- NOTE | 2020-01-20 09:42 | PDOC PROGRESS REPORT ---
Subjective Progress Note for:: 01/20/20 Subjective:: feels ok passed some flatus, no stool\ Reason For Visit: Physical Exam Vital Signs: Temp Pulse Resp BP Pulse Ox 97.8 F 69 18 129/65 H 100 01/20/20 07:38 01/20/20 07:38 01/20/20 07:38 01/20/20 07:38 01/20/20 07:38 Intake & Output 01/19/20 01/20/20 01/21/20 06:59 06:59 06:59 Intake Total 500 Output Total 1700 Balance -1200 General appearance: PRESENT: no acute distress Head exam: PRESENT: atraumatic Eye exam: PRESENT: conjunctiva pink Mouth exam: PRESENT: moist Neck exam: PRESENT: full ROM Respiratory exam: PRESENT: clear to auscultation bharat Pulses: PRESENT: normal radial pulses, normal femoral pulses Breast: PRESENT: Normal GI/Abdominal exam: PRESENT: soft Rectal exam: PRESENT: deferred Gentrourinary exam: PRESENT: indwelling catheter Extremities exam: PRESENT: full ROM Neurological exam: PRESENT: alert, awake, oriented to place Psychiatric exam: PRESENT: appropriate affect Skin exam: PRESENT: dry Results Laboratory Results: 01/20/20 06:59 01/19/20 01/20/20 19:00 06:59 WBC 26.3 H D 19.7 H RBC 3.60 L 3.07 L Hgb 10.6 L 9.0 L Hct 30.9 L 26.3 L MCV 86 86 MCH 29.5 29.4 MCHC 34.4 34.3 RDW 14.1 H 13.9 Plt Count 202 170 Seg Neutrophils % 76.2 Assessment & Plan - Plan Summary Plan Summary: s/p operative repair of rectal tear yesterday post doing ok today] adan reg diet recommend home per OB sitz baths at home with epsome salts\ tid stool softners surgery clinic f/u in 10-14 days surgery will sign off for now.
--- NOTE | 2020-01-20 09:49 | PDOC PROGRESS REPORT ---
Subjective-OB Progress Note for:: 01/20/20 Subjective: reports bleeding slowing, pain controlled with current meds. denies needs Physical Exam (OB) Vital Signs: Temp Pulse Resp BP Pulse Ox 97.8 F 69 18 129/65 H 100 01/20/20 07:38 01/20/20 07:38 01/20/20 07:38 01/20/20 07:38 01/20/20 07:38 Intake & Output 01/19/20 01/20/20 01/21/20 06:59 06:59 06:59 Intake Total 500 Output Total 1700 Balance -1200 - Abdomen Description: Soft Hernia Present: No Fundal Description: Firm, Midline Fundal Height: u/u - u/2 - Abdominal Distension: No distension Tenderness: Nontender - Extremities Lower extremities: Mercedes's sign - neg Calf: Normal, Nontender Objective-Diagnostic Laboratory: 01/20/20 06:59 01/19/20 01/20/20 19:00 06:59 WBC 26.3 H D 19.7 H RBC 3.60 L 3.07 L Hgb 10.6 L 9.0 L Hct 30.9 L 26.3 L MCV 86 86 MCH 29.5 29.4 MCHC 34.4 34.3 RDW 14.1 H 13.9 Plt Count 202 170 Seg Neutrophils % 76.2 Assessment and Plan(PN) - Assessment and Plan (1) Obstetrical laceration, fourth degree Is this a current diagnosis for this admission?: Yes (2) complicated by subutex maintenance, antepartum Is this a current diagnosis for this admission?: Yes (3) Spontaneous vaginal delivery Is this a current diagnosis for this admission?: Yes (4) Traumatic injury of rectum Is this a current diagnosis for this admission?: Yes - Time Spent with Patient Time with patient: Less than 15 minutes - Disposition Anticipated Discharge: Home Within: within 48 hours
[2020-01-20] MEDS: DOCUSATE SODIUM 100 MG CAPSULE PO SCH ×2 (10:28→17:55)
[2020-01-20] MEDS: SENNOSIDES/DOCUSATE 8.6-50 MG 1 EACH TABLET PO SCH (10:30)
[2020-01-20] MEDS: FERROUS SULFATE 325 MG TABLET PO SCH ×2 (10:30→17:54)
[2020-01-20] MEDS: FAMOTIDINE 20 MG TABLET PO SCH ×2 (10:30→21:37)
[2020-01-20] MEDS: IBUPROFEN 800 MG TABLET PO SCH ×2 (10:30→17:54)
[2020-01-20] MEDS: PRENATAL VITAMIN W DHA CAPSULE PO SCH (10:30)
[2020-01-20] MEDS: LABETALOL HCL 200 MG TABLET PO SCH ×2 (10:30→17:55)
[2020-01-20] MEDS: PSYLLIUM SEED-SF 5.85 GM PACKET PO SCH ×2 (11:25→17:57)
[2020-01-20] MEDS: NIFEDIPINE 30 MG TAB.ER.24 PO SCH (11:40)
[2020-01-21] MEDS: IBUPROFEN 800 MG TABLET PO SCH ×3 (01:08→17:28)
[2020-01-21] MEDS: METRONIDAZOLE 500 MG/NS RTU 500 MG/100 ML RTUPB IV SCH ×4 (03:38→21:03)
[2020-01-21] MEDS: CEFAZOLIN SODIUM 2 GM in DEXTROSE 5%-WATER 100 ML IV SCH ×3 (05:27→17:28)
[2020-01-21] MEDS: PANTOPRAZOLE SODIUM 40 MG TABLET.DR PO SCH (05:27)
[2020-01-21] MEDS: PRENATAL VITAMIN W DHA CAPSULE PO SCH (09:07)
[2020-01-21] MEDS: FAMOTIDINE 20 MG TABLET PO SCH ×2 (09:07→21:11)
[2020-01-21] MEDS: DOCUSATE SODIUM 100 MG CAPSULE PO SCH ×2 (09:07→17:28)
[2020-01-21] MEDS: LABETALOL HCL 200 MG TABLET PO SCH ×2 (09:11→17:28)
[2020-01-21] MEDS: NIFEDIPINE 30 MG TAB.ER.24 PO SCH (09:12)
[2020-01-21] MEDS: PSYLLIUM SEED-SF 5.85 GM PACKET PO SCH ×2 (09:37→17:27)
--- NOTE | 2020-01-21 09:37 | PDOC PROGRESS REPORT ---
Subjective Progress Note for:: 01/21/20 Subjective:: feeling better. has not had to take pain medication since yesterday mid day. passing flatus and tolerating a regular diet. is wanting to restart subutex for pain control. Reason For Visit: Physical Exam - Physical Exam Vital Signs: Temp Pulse Resp BP Pulse Ox 98.1 F 74 16 156/89 H 100 01/21/20 07:46 01/21/20 07:46 01/21/20 07:46 01/21/20 07:46 01/21/20 07:46 Intake & Output 01/20/20 01/21/20 01/22/20 06:59 06:59 06:59 Intake Total 600 720 Output Total 1700 850 Balance -1100 -130 General appearance: PRESENT: no acute distress, cooperative Result Laboratory Results: 01/20/20 06:59 Assessment & Plan - Diagnosis (1) Encounter for elective induction of labor Is this a current diagnosis for this admission?: Yes (2) Obstetric laceration of cervix, delivered Is this a current diagnosis for this admission?: Yes (3) Obstetrical laceration, fourth degree Is this a current diagnosis for this admission?: Yes (4) complicated by subutex maintenance, antepartum Is this a current diagnosis for this admission?: Yes (5) Spontaneous vaginal delivery Is this a current diagnosis for this admission?: Yes (6) Traumatic injury of rectum Is this a current diagnosis for this admission?: Yes - Time Time Spent with patient: Less than 15 minutes - Plan Summary Plan Summary: will give subutex and see if this holds the patient's pain control. she indicates that the procardia "makes me feel funny" so will d/co that med and continue the labetolol which seems to be holding her bp stable. If patient does well this AM will consider discharge this afternoon. Will give instructions for TID Sitz baths at home and to follow up with Dr. Ku and Gen surgery as planned in 10-14 days. soft diet, continue colace 200 mg BID to jeronimo stool soft
[2020-01-21] MEDS: FERROUS SULFATE 325 MG TABLET PO SCH ×2 (11:40→17:28)
[2020-01-21] MEDS: SENNOSIDES/DOCUSATE 8.6-50 MG 1 EACH TABLET PO SCH (11:40)
[2020-01-21] MEDS: BUPRENORPHINE HCL 2 MG SUBLINGUAL TABLET SL SCH (11:41)
[2020-01-22] MEDS: CEFAZOLIN SODIUM 2 GM in DEXTROSE 5%-WATER 100 ML IV SCH ×2 (00:09→05:24)
[2020-01-22] MEDS: IBUPROFEN 800 MG TABLET PO SCH ×2 (01:13→10:32)
[2020-01-22] MEDS: METRONIDAZOLE 500 MG/NS RTU 500 MG/100 ML RTUPB IV SCH ×2 (03:58→10:14)
[2020-01-22] MEDS: PANTOPRAZOLE SODIUM 40 MG TABLET.DR PO SCH (05:25)
[2020-01-22 08:16] VITALS: BP 147/85
--- NOTE | 2020-01-22 08:59 | PDOC PROGRESS REPORT ---
Subjective Progress Note for:: 01/22/20 Subjective:: Doing well. No issues overnight. Tolerating PO well. Voiding well. Passing gas. No BM yet. Good pain management iwth her Subutex and Ibuprofen ATC. Bleeding light. She is bottle feeding. No CARDONA, CP, SOB, RUQ pain, n/v or vision changes. Reason For Visit: Physical Exam - Physical Exam Vital Signs: Temp Pulse Resp BP Pulse Ox 97.9 F 81 16 147/85 H 100 01/22/20 07:48 01/22/20 07:48 01/22/20 07:48 01/22/20 07:48 01/22/20 07:48 Intake & Output 01/21/20 01/22/20 01/23/20 06:59 06:59 06:59 Intake Total 920 800 Output Total 850 Balance 70 800 General appearance: PRESENT: no acute distress, cooperative Respiratory exam: PRESENT: clear to auscultation bharat Cardiovascular exam: PRESENT: RRR, +S1, +S2 Pulses: PRESENT: normal dorsalis pedis pul, +2 pedal pulses bilateral GI/Abdominal exam: PRESENT: normal bowel sounds - No tenderness on palpation of fundus. FUndus firm and 2 below, soft Neurological exam: PRESENT: alert, awake, oriented to person, oriented to place, oriented to time, oriented to situation, CN II-XII grossly intact. ABSENT: motor sensory deficit Psychiatric exam: PRESENT: appropriate affect, normal mood. ABSENT: homicidal ideation, suicidal ideation Skin exam: PRESENT: dry, intact, warm. ABSENT: cyanosis, rash Result Laboratory Results: 01/20/20 06:59 Assessment & Plan - Diagnosis (1) Obstetric laceration of cervix, delivered Is this a current diagnosis for this admission?: Yes (2) Obstetrical laceration, fourth degree Is this a current diagnosis for this admission?: Yes (4) Spontaneous vaginal delivery Is this a current diagnosis for this admission?: Yes (5) Traumatic injury of rectum Is this a current diagnosis for this admission?: Yes - Time Time Spent with patient: 15-24 minutes Anticipated discharge: Home Within: within 24 hours - 34 yo s/p , PP Day #3. Delivery complicated by 4th degree laceration with surgical repair in OR -DOing well -No issues overnight - Tolerating PO well -cHTN complicated . Labetolol 200mg BID presently. NO PIH symptoms . Continue on discharge. -Hgb 12.4 --> 9.5 Discussed continuing PNV at home for Iron. -4th degree laceration: s/p prophylactic antibiotics after repair. Passing gas. Not passing stool yet. Continue colace BID and add m etamucil to keep stools very soft. Adjust these meds PRN to keep stool constistancy soft -Pain well managed with subutex and Ibuprofen -D/c IV access - Bottle feeding -Will likely discharge later today if doing well and have her f/u in 1 wk at our office
--- NOTE | 2020-01-22 09:09 | PDOC DISCHARGE SUMMARY ---
Impression - Admit/DC Date/PCP Admission Date/Primary Care Provider: 01/17/20 19:11 BENNETT SHAW MD Discharge Date: 01/22/20 - Discharge Diagnosis (1) Obstetric laceration of cervix, delivered Is this a current diagnosis for this admission?: Yes (2) Obstetrical laceration, fourth degree Is this a current diagnosis for this admission?: Yes (3) complicated by subutex maintenance, antepartum Is this a current diagnosis for this admission?: Yes (4) Spontaneous vaginal delivery Is this a current diagnosis for this admission?: Yes (5) Traumatic injury of rectum Is this a current diagnosis for this admission?: Yes - Additional Information Resuscitation Status: Full Code - 34 yo s/p , PP Day #3. Delivery complicated by 4th degree laceration with surgical repair in OR -DOing well -No issues overnight -Tolerating PO well -cHTN complicated . Labetolol 200mg BID presently. NO PIH symptoms . Continue on discharge. -Hgb 12.4 --> 9.5 Discussed continuing PNV at home for Iron. -4th degree laceration: s/p prophylactic antibiotics after repair. Passing gas. Not passing stool yet. Continue colace BID and add metamucil to keep stools very soft. Adjust these meds PRN to keep s tool constistancy soft -Pain well managed with subutex and Ibuprofen -D/c IV access -Bottle feeding RH positve -Will likely discharge later today if doing well and have her f/u in 1 wk at our office Discharge Diet: As Tolerated Discharge Activity: Activity As Tolerated Referrals: BENNETT SHAW MD [Primary Care Provider] - Prescriptions: Docusate Sodium [Colace 100 mg Capsule] 200 mg PO BID 30 Days #60 capsule Psyllium Seed [Metamucil-Sf Powder 5.85 gm Packet] 1 packet PO BID 30 Days #60 packet Ibuprofen [Motrin 800 mg Tablet] 800 mg PO Q8A 10 Days #30 tablet Labetalol HCl [Normodyne 200 mg Tablet] 200 mg PO BID 30 Days #60 Labetalol HCl [Normodyne 200 mg Tablet] 200 mg PO BID 30 Days #60 tablet Home Medications: Buprenorphine HCl/Naloxone HCl [Suboxone 8 mg-2 mg Sl Film] 8 mg SL DAILY 12/27/19 No122/Iron/Folic Acid [ Multi Tablet] 1 tab PO DAILY 12/27/19 Buprenorphine HCl [Subutex 2 mg Sl Tablet] 8 mg SL DAILY tab.subl 01/22/20 Docusate Sodium [Colace 100 mg Capsule] 200 mg PO BID 30 Days #60 capsule 01/22/20 Ibuprofen [Motrin 800 mg Tablet] 800 mg PO Q8A 10 Days #30 tablet 01/22/20 Labetalol HCl [Normodyne 200 mg Tablet] 200 mg PO BID 30 Days #60 01/22/20 Labetalol HCl [Normodyne 200 mg Tablet] 200 mg PO BID 30 Days #60 tablet 01/22/20 Vit/Dha [ Multi + Dha Capsule] 1 cap PO DAILY capsule 01/22/20 Psyllium Seed [Metamucil-Sf Powder 5.85 gm Packet] 1 packet PO BID 30 Days #60 packet 01/22/20 History of Present Illiness History of Present Illness: LATASHA MCCALL is a 34 year old female Physical Exam - Physical Exam Vital Signs: Temp Pulse Resp BP Pulse Ox 97.9 F 81 16 147/85 H 100 01/22/20 07:48 01/22/20 07:48 01/22/20 07:48 01/22/20 07:48 01/22/20 07:48 Intake & Output 01/21/20 01/22/20 01/23/20 06:59 06:59 06:59 Intake Total 920 800 Output Total 850 Balance 70 800 Results Laboratory Results: WBC 19.7 10^3/uL (4.0-10.5) H 01/20/20 06:59 RBC 3.07 10^6/uL (3.72-5.28) L 01/20/20 06:59 Hgb 9.0 g/dL (12.0-15.5) L 01/20/20 06:59 Hct 26.3 % (36.0-47.0) L 01/20/20 06:59 MCV 86 fl (80-97) 01/20/20 06:59 MCH 29.4 pg (27.0-33.4) 01/20/20 06:59 MCHC 34.3 g/dL (32.0-36.0) 01/20/20 06:59 RDW 13.9 % (11.5-14.0) 01/20/20 06:59 Plt Count 170 10^3/uL (150-450) 01/20/20 06:59 Lymph % (Auto) 15.4 % (13-45) 01/20/20 06:59 [place] % (Auto) 7.5 % (3-13) 01/20/20 06:59 Eos % (Auto) 0.5 % (0-6) 01/20/20 06:59 Baso % (Auto) 0.4 % (0-2) 01/20/20 06:59 Absolute Neuts (auto) 15.0 10^3/uL (1.7-8.2) H 01/20/20 06:59 Absolute Lymphs (auto) 3.0 10^3/uL (0.5-4.7) 01/20/20 06:59 Absolute Monos (auto) 1.5 10^3/uL (0.1-1.4) H 01/20/20 06:59 Absolute Eos (auto) 0.1 10^3/uL (0.0-0.6) 01/20/20 06:59 Absolute Basos (auto) 0.1 10^3/uL (0.0-0.2) 01/20/20 06:59 Seg Neutrophils % 76.2 % (42-78) 01/20/20 06:59 Urine Color YELLOW 01/17/20 19:30 Urine Appearance SLIGHTLY-CLOUDY 01/17/20 19:30 Urine pH 7.0 (5.0-9.0) 01/17/20 19:30 Ur Specific [place] 1.012 01/17/20 19:30 Urine Protein NEGATIVE mg/dL (NEGATIVE) 01/17/20 19:30 Urine Glucose (UA) NEGATIVE mg/dL (NEGATIVE) 01/17/20 19:30 Urine Ketones NEGATIVE mg/dL (NEGATIVE) 01/17/20 19:30 Urine Blood NEGATIVE (NEGATIVE) 01/17/20 19:30 Urine Nitrite NEGATIVE (NEGATIVE) 01/17/20 19:30 Urine Bilirubin NEGATIVE (NEGATIVE) 01/17/20 19:30 Urine Urobilinogen NEGATIVE mg/dL (<2.0) 01/17/20 19:30 Ur Leukocyte Esterase SMALL (NEGATIVE) H 01/17/20 19:30 Urine Ascorbic Acid 20 (NEGATIVE) H 01/17/20 19:30 Urine Opiates Screen NEGATIVE 01/17/20 19:30 Urine Methadone Screen NEGATIVE 01/17/20 19:30 Ur Barbiturates Screen NEGATIVE 01/17/20 19:30 Ur Phencyclidine Scrn NEGATIVE 01/17/20 19:30 Ur Amphetamines Screen NEGATIVE 01/17/20 19:30 U Benzodiazepines Scrn NEGATIVE 01/17/20 19:30 Urine Cocaine Screen NEGATIVE 01/17/20 19:30 U Marijuana (THC) Screen NEGATIVE 01/17/20 19:30 RPR NONREACTIVE (NONREACTIVE) 01/17/20 19:55 Blood Type A POSITIVE 01/17/20 19:55 Antibody Screen NEGATIVE 01/17/20 19:55 Stroke Is this a Stroke Patient?: No Acute Heart Failure - Is this a Heart Failure Patient?: No
[2020-01-22] MEDS: BUPRENORPHINE HCL 2 MG SUBLINGUAL TABLET SL SCH (10:30)
[2020-01-22] MEDS: SENNOSIDES/DOCUSATE 8.6-50 MG 1 EACH TABLET PO SCH (10:31)
[2020-01-22] MEDS: LABETALOL HCL 200 MG TABLET PO SCH (10:31)
[2020-01-22] MEDS: FERROUS SULFATE 325 MG TABLET PO SCH (10:31)
[2020-01-22] MEDS: DOCUSATE SODIUM 100 MG CAPSULE PO SCH (10:31)
[2020-01-22] MEDS: FAMOTIDINE 20 MG TABLET PO SCH (10:32)
[2020-01-22] MEDS: PSYLLIUM SEED-SF 5.85 GM PACKET PO SCH (10:32)
[2020-01-22] MEDS: PRENATAL VITAMIN W DHA CAPSULE PO SCH (10:32)
== END 2020-01-22 11:02 | disposition home or self-care (01) | DRG 768 ==
LOC: LR 19:11 → 2S 01-19 16:15
PROVIDERS: ADMIT Obstetrics & Gynecology; ATTEND Obstetrics & Gynecology
PROC: 3E033VJ Introduction of Other Hormone into Peripheral Vein, Percutaneous Approach (ICD-10-PCS; 2020-01-18)
PROC: 10907ZC Drainage of Amniotic Fluid, Therapeutic from Products of Conception, Via Natural or Artificial Opening (ICD-10-PCS; 2020-01-18)
PROC: 0UQC0ZZ Repair Cervix, Open Approach (ICD-10-PCS; 2020-01-19)
PROC: 10E0XZZ Delivery of Products of Conception, External Approach (ICD-10-PCS; principal; 2020-01-19 15:00)
PROC: 0DQP0ZZ Repair Rectum, Open Approach (ICD-10-PCS; 2020-01-19 15:00)
DX: O10.02 Pre-existing essential hypertension complicating childbirth (principal); Z37.0 Single live birth; O99.324 Drug use complicating childbirth; F11.20 Opioid dependence, uncomplicated; O70.3 Fourth degree perineal laceration during delivery; O98.413 Viral hepatitis complicating pregnancy, third trimester; O71.3 Obstetric laceration of cervix; K75.89 Other specified inflammatory liver diseases; B19.20 Unspecified viral hepatitis C without hepatic coma; O63.1 Prolonged second stage (of labor); Z87.891 Personal history of nicotine dependence; Z88.0 Allergy status to penicillin; Z3A.39 39 weeks gestation of pregnancy
CPT/HCPCS: 1967; 36415; 80307; 81005; 85025; 85027; 86592; 86850; 86900; 86901; 902; 94760; 94799; C9290; J0571; J0690; J1170; J2250; J2300; J2550; J2590; J2704; J3010; J3490; J7060